=== PATIENT | male | born 1980 | race American Indian/Alaskan Native ===

== ENCOUNTER 2017-08-26 10:11 | Outpatient (CLI) | payer OTHER ==
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
== END 2017-08-26 10:12 | disposition home or self-care (01) ==
LOC: XRAY 10:11
PROVIDERS: ATTEND Internal Medicine
DX: M47.892 Other spondylosis, cervical region (principal); S42.302D Unspecified fracture of shaft of humerus, left arm, subsequent encounter for fracture with routine healing; S72.302D Unspecified fracture of shaft of left femur, subsequent encounter for closed fracture with routine healing; S82.201D Unspecified fracture of shaft of right tibia, subsequent encounter for closed fracture with routine healing; M19.171 Post-traumatic osteoarthritis, right ankle and foot; X58.XXXD Exposure to other specified factors, subsequent encounter
CPT/HCPCS: 72040

== ENCOUNTER 2020-09-14 10:03 | Emergency (ER) | payer OTHER ==
[2020-09-14 10:12] VITALS: BP 136/94
[2020-09-14] MEDS ORDERED: KETOROLAC 30 MG/1 ML INJ IM ONE (11:20)
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
== END 2020-09-14 12:02 | disposition left against medical advice (07) ==
LOC: ED 10:03
DX: M79.604 Pain in right leg (principal); F17.200 Nicotine dependence, unspecified, uncomplicated
CPT/HCPCS: 99281